=== PATIENT | female | born 1970 | race Caucasian/White ===

== ENCOUNTER → 2023-06-29 17:09 | Outpatient (REF) | payer OTHER, SELFPAY | LOC: RAD 17:09 | PROVIDERS: ATTENDING PHYSICIAN Family Medicine | DX: Z87.891 Personal history of nicotine dependence (principal) | CPT/HCPCS: 71271 ==

== ENCOUNTER 2024-09-27 06:39 | Emergency (ER) | payer OTHER, SELFPAY ==
[2024-09-27 06:40] VITALS: BP 155/85
--- NOTE | 2024-09-27 06:54 | ED.GENMED ---
History of Present Illness
General
Chief Complaint: Abdominal Pain
Source: patient
Exam Limitations: none
Time Seen by Provider: 09/27/24 06:49
History of Present Illness
History of Present Illness:
See MDM
Past History
Past History
ED Past Medical History: Hypercholesterolemia and Hypothyroidism
ED Past Surgical History: Gynecological and Other
Social History
Tobacco: Smoker
Alcohol: None
Personal:
Living: with family
Employment: Employed
Family History
Family History: Other
Phy Exam
Physical Exam
Physical Exam:
See MDM
Course
Orders/Labs/Results
Orders:
Orders
09/27/24 06:54
US Abdomen Complete/Upper Urgent
Comment:
Reason For Exam: RUQ pain
09/27/24 07:07
Complete Blood Count/With Diff Urgent
Comprehensive Metabolic Panel Urgent
Lipase Urgent
PTT Urgent
Prothrombin Time Urgent
09/27/24 09:00
CT Abd/pelvis W Iv Cont Urgent
Comment:
Reason For Exam: upper R abd pain
Abnormal Lab Results
09/27/24
07:07
WBC 4.4 L 10^3/uL
(4.8-10.8)
Absolute Lymphs (auto) 0.9 L 10^3/uL
(1.2-3.4)
Chloride 108 H mmol/L
(98-107)
BUN 25 H mg/dl
(7-17)
Glucose 105 H mg/dl
(70-99)
09/27/24 07:07
09/27/24 07:07
Vital Signs
Initial and Last Documented VS:
Initial Vital Signs
Temp Pulse Resp BP Pulse Ox
98 F 62 18 155/85 100
09/27/24 06:40 07/10/25 06:40 09/27/24 06:40 09/27/24 06:40 09/27/24 06:40
Last Documented Vital Signs
Temp Pulse Resp BP Pulse Ox
98 F 61 15 140/91 99
09/27/24 06:40 09/27/24 09:00 09/27/24 09:00 09/27/24 09:00 09/27/24 09:15
MDM/Problems Addressed
Differential Diagnosis Includes:
HPI and MDM Narrative:
54-year-old female presenting with intermittent right upper quadrant abdominal pain. She noticed it a few days ago when she was doing yard work. She saw her primary care doctor attributed to a muscle strain. Patient noted sudden onset of pain
that reoccurred this morning. She states this is not consistent with a prior muscle strain. On exam, patient does have right upper quadrant tenderness. She denies urinary symptoms or fevers. Will obtain right upper quadrant ultrasound and basic
blood work and consider CT ultrasound if ultrasound is negative
Physical exam
General: Well appearing and non-toxic
HEENT: protecting airway
Neck: appears supple
CV: No evidence of cyanosis
Resp: No accessory muscle use
Abd: Non-distended. Right upper quadrant tenderness. No rebound
Extremities: No deformities
Neuro: alert
Psych: Normal affect
Skin: Intact
Problems Addressed including Acute and Chronic Conditions affecting care:
1. Right upper quadrant tenderness
Acuity: acute
Prognosis: stable
Details: Given location of pain, will start with right upper quadrant ultrasound. Patient declined pain medicine
Updates
Blood work and ultrasound negative. CT obtained showing concern for constipation. Stool softener MiraLAX. We discussed the incidental pericardial effusion patient states she is already aware of this
Differential Diagnosis (but not limited to): Acute cholecystitis, symptomatic cholelithiasis, pancreatitis
Testing considered: CT abdomen/pelvis
Drug therapy (if applicable): OTC meds, please see d/c instruction regarding Rx drugs
Amount and/or Complexity of Data Reviewed
Clinical info obtained from: Patient
External data reviewed: N/A
Labs I independently reviewed (but not limited to): Blood cell count normal
Radiology: The CT scan was personally and independently reviewed. In addition, official CT report reviewed.
Pulse Ox: not hypoxic
EKG independently reviewed: N/A
New Home Sales Consultant: N/A
Critical Care: N/A
Risk of Complication:
Social Determinants of health: Good social support
Discussed with other providers: N/A
Escalation of Care includes Admit/Obs: After being observed in the Emergency Department, pt stable for discharge.
Occasional wrong word or 'sound a like' substitutions may have occurred due to the inherent limitations of voice recognition software. Read the chart carefully and recognize, using context, where substitutions have occurred.
*Pulse Oximetry
SaO2: 100
Patient hypoxic: no
*Critical Care Note
Total Time (30-74mins, 75-104mins- exclusive of procedures): Not Applicable
ED Attending Note
-
Portions of this chart may have been created with voice recognition software.� Occasional wrong word or��sound alike� substitutions may have occurred due to the inherent limitations of voice recognition software.
Discharge Plan
Departure
Patient Disposition: Home (Routine Discharge)
Date of Disposition: 09/27/24
Time of Disposition: 11:03
Patient with high blood pressure during this ER visit?: No
Discharge Problem:
Constipation
Instructions: Constipation, Adult (DC)
Prescriptions:
No Action
levothyroxine 125 MCG tablet
125 mcg PO DAILY
ibuprofen 800 MG tablet
800 mg PO PRN PRN (Reason: pain)
acrepsq-meudigyjejtha-tzbctsij [Excedrin Extra Strength] 1 TABLET tablet
2 tab PO PRN PRN (Reason: pain)
oxycodone 5 MG tablet
5 mg PO Q4HPRN PRN (Reason: moderate pain) Qty: 12 0RF
Referrals:
Rajesh Bustamante MD [Family Provider, Family Practice]
Activity Restrictions/Additional Instructions:
Please return for any worsening symptoms.
You may return at any time if you have further concerns.
Please follow up with your doctor at the first available appointment, preferably this week. Please take MiraLAX and a stool softener daily until symptoms resolve.
Thank you for choosing [facility].
Interventions
Interventions:
*Risk Screen - Suicide Last Done: 09/27/24 06:40
*General Assessment Last Done: 09/27/24 07:09
*Neglect/Abuse Screening Last Done: 09/27/24 06:40
*ED- Fall Risk Assessment Last Done: 09/27/24 07:09
*ED COVID-19 Vaccine History Last Done: 09/27/24 07:09
AA-Qdaaoy-Tigvxdwvvo Assessment Last Done: 09/27/24 07:11
Discharge Date and Time
Print Language: MALTESE
[2024-09-27 07:09] VITALS: BMI 21.3
[2024-09-27 07:27] LABS: Hematocrit 39.4 % (37.0-47.0); Hemoglobin 13.6 g/dL (12.0-16.0); Mean Corp Hgb Conc. 34.5 g/dL (33.0-37.0); Mean Corpuscular Volume 86.4 fL (81.0-99.0); Nucleated Red Blood Cells % 0 %; Platelet Count 141 10^3/uL (130-400); Red Cell Dist. Width 13.0 % (11.5-14.5)
[2024-09-27 07:32] LABS: INR 0.98; PT 13.5 Sec (11.4-14.6)
[2024-09-27 07:33] LABS: APTT 30.5 Sec (23.4-35.0)
[2024-09-27 07:41] LABS: ALT (SGPT) 19 U/L (0-35); AST (SGOT) 24 U/L (14-36); Albumin 4.5 g/dl (3.5-5.0); Alkaline Phosphatase 52 U/L (38-126); Blood Urea Nitrogen 25 mg/dl (7-17); Calcium 9.3 mg/dl (8.4-10.2); Carbon Dioxide 25 mmol/L (22-30); Chloride 108 mmol/L (98-107); Estimated Creatinine Clearance 57 ml/min; Glucose 105 mg/dl (70-99); Lipase 87 U/L (23-300); Potassium 4.1 mmol/L (3.5-5.1); Sodium 138 mmol/L (135-145); Total Protein 6.9 g/dl (6.3-8.2); eGFR > 60.00
[2024-09-27 08:00] VITALS: BP 145/95
[2024-09-27 09:00] VITALS: BP 140/91
[2024-09-27] MEDS: CITROMA 300 ML PO (11:05)
== END 2024-09-27 11:08 | disposition home or self-care (01) ==
LOC: EMR 06:39
PROVIDERS: EMERGENCY PHYSICIAN Student in an Organized Health Care Education/Training Program; FAMILY PHYSICIAN Family Medicine
DX: K59.00 Constipation, unspecified (principal); I31.39 Other pericardial effusion (noninflammatory); E78.00 Pure hypercholesterolemia, unspecified; E03.9 Hypothyroidism, unspecified; F17.200 Nicotine dependence, unspecified, uncomplicated
CPT/HCPCS: 99284; 74177; 76700; 80053; 83690; 85025; 85610; 85730; Q9967